=== PATIENT | male | born 1995 | race Caucasian/White ===

== ENCOUNTER 2018-08-18 01:32 | Inpatient (IN) ==
--- NOTE | 2018-08-18 02:10 | ED ---
HPI General Chief Complaint: Chest Pain Stated Complaint: Short of Breath Time Seen by Provider: 08/18/18 02:07 Source: patient Mode of arrival: ambulatory Limitations: no limitations History of Present Illness HPI narrative: 23-year-old male with history of renal failure on hemodialysis times 3 years has moved here from [place] traveling by car yesterday to the area. Patient typically has hemodialysis on Tuesdays and but because of the holiday had dialysis on Wednesday and is scheduled to have dialysis here locally at 11 AM on . Patient in the past 5 hours has developed chest pain and shortness of breath. Patient also complains of epigastric pain. Patient had nausea and dizziness. Patient was scheduled to have his evening dose of hydralazine and verapamil at 1:45 AM which is when he reportedly takes the medication but because he was on his way to the hospital did not take his morning medication. Patient does not report any pleuritic chest pain. Patient reportedly rates his pain 8/10 in intensity and radiates into his back. Patient also has history of hypertension. Patient takes amlodipine verapamil irbesartan and hydralazine. MD complaint: Reports chest pain Related Data Home Medications Medication Instructions Recorded Confirmed Auryxia 210 mg PO TID PRN 08/18/18 08/18/18 amlodipine 10 mg PO DAILY 08/18/18 08/18/18 hydralazine 100 mg PO BID 08/18/18 08/18/18 irbesartan 300 mg PO DAILY 08/18/18 08/18/18 verapamil 240 mg PO QAM 08/18/18 08/18/18 Allergies Allergy/AdvReac Type Severity Reaction Status Date / Time Beta-Blockers Allergy Dizziness Verified 08/18/18 01:55 (Beta-Adrenergic Bloc codeine Allergy Dizziness Verified 08/18/18 01:55 gluten Allergy Anaphylaxis Verified 08/18/18 01:54 latex Allergy Rash Verified 08/18/18 01:54 minoxidil Allergy Dizziness Verified 08/18/18 01:56 [facility] Medical History Medical History Stage 5 chronic kidney disease (Acute) Surgical history unknown (Acute) Social History Social History Substance History: No History of Abuse Smoking Status: Never smoker How Often Do You Have a Drink Containing Alcohol: Never Recent Travel in [facility] within the Last 8 Weeks: No Recent Out of Country Travel within the Last 8 Weeks: No Immunization History Tetanus Immunization: <5 Years Course Initial Documented Vital Signs Temperature 98.5 F 08/18/18 01:49 Pulse Rate 111 H 08/18/18 01:49 Respiratory Rate 18 08/18/18 01:49 Blood Pressure 175/115 H 08/18/18 01:49 Last Documented Vital Signs Temperature 98.5 F 08/18/18 01:49 Pulse Rate 110 H 08/18/18 05:08 Respiratory Rate 18 08/18/18 05:08 Blood Pressure 166/96 H 08/18/18 05:08 Pulse Oximetry 100 08/18/18 05:08 Medical Decision Making MDM Narrative Medical decision making narrative: At 2:30 AM patient refusing sublingual nitroglycerin and nitroglycerin paste and Lasix states only morphine provides him any pain relief. Patient reports he was hospitalized in [place] 1 month ago and had a similar presentation and he spoke to his mother on the phone who told him only morphine provides him pain relief. Patient subsequently has been noted to have decreased O2 saturation on 4 L/min nasal cannula from previously 92% sats down to 87% stat was placed on nonrebreather mask ABG was ordered and patient had chest x-ray which shows pulmonary edema with marked cardiomegaly and weight-based Lasix was ordered along with pending BMP for BUN and creatinine and potassium results patient will need to have dialysis. Patient states he makes minimal urine. EKG shows sinus tachycardia rate of 117 with septal Q wave and lateral ST depression. Chest x-ray consistent with pulmonary edema heart failure; potassium elevated at 6.4. Creatinine 46 and 13 his case discussed with on-call sap consultant Dr. Delgado who will arrange for hemodialysis is to be performed at [facility] Patient discussed with Dr. Burroughs will admit to stepdown for hemodialysis and management of fluid overload/hyperkalemia Medical Screen Exam Complete: Yes Emergency Medical Condition: Yes Lab Data Result diagrams: 08/18/18 02:05 08/18/18 02:05 Lab Results 08/18/18 08/18/18 08/18/18 Range/Units 02:05 02:05 02:05 CBC w Diff Auto diff final WBC 7.3 (4.0-11.0) th/mm3 RBC 3.61 L (4.50-5.90) mil/mm3 Hgb 11.8 L (13.0-17.0) gm/dL Hct 36.0 L (39.0-51.0) % MCV 99.7 (80.0-100.0) fL MCH 32.8 (27.0-34.0) pg MCHC 32.8 (32.0-36.0) % RDW 16.2 (11.6-17.2) % Plt Count 288 (150-450) th/mm3 MPV 7.9 (7.0-11.0) fL Neut % (Auto) 74.1 H (16.0-70.0) % Lymph % (Auto) 16.9 (9.0-44.0) % Dawes % (Auto) 4.9 (0.0-8.0) % Eos % (Auto) 3.3 (0.0-4.0) % Baso % (Auto) 0.8 (0.0-2.0) % Neut # (Auto) 5.4 (1.8-7.7) th/mm3 Lymph # (Auto) 1.2 (1.0-4.8) th/mm3 Dawes # (Auto) 0.4 (0.0-0.9) th/mm3 Eos # (Auto) 0.2 (0.0-0.4) th/mm3 Baso # (Auto) 0.1 (0.0-0.2) th/mm3 WBC Differential . Differential Comment . Puncture Site Patient Temperature O2 Saturation (90-100) % ABG pH (7.380-7.420) ABG pCO2 (38-42) mmHg ABG pO2 (61-120) mmHg ABG HCO3 (22-26) mmol/L ABG O2 Content (12.0-20.0) Vol % ABG Base Excess (-2-2) mmol/L ABG Methemoglobin (0-2) % Cricket Test Hemoglobin (12.0-16.0) G/DL Carboxyhemoglobin (0-4) % O2 Delivery Device Liter Flow L/M Inspired O2 % Critical Value Sodium 137 (136-145) meq/L Potassium 6.4 H (3.5-5.1) meq/L Chloride 99 (98-107) meq/L Carbon Dioxide 25.3 (21.0-32.0) meq/L Anion Gap 13 (5-15) meq/L BUN 46 H (7-18) mg/dL Creatinine 13.00 H* (0.60-1.30) mg/dL Estimated GFR 5 L (>89) mL/min Random Glucose 106 (74-106) mg/dL Calcium 8.5 (8.5-10.1) mg/dL Magnesium 2.7 H (1.5-2.5) mg/dL Total Bilirubin 0.5 (0.2-1.0) mg/dL AST 11 L (15-37) U/L ALT 24 (12-78) U/L Alkaline Phosphatase 152 H (45-117) U/L Troponin I 0.12 H (0.02-0.05) ng/mL B-Natriuretic Peptide (0-100) pg/mL Total Protein 7.6 (6.4-8.2) g/dL Albumin 3.7 (3.4-5.0) g/dL 08/18/18 08/18/18 Range/Units 02:05 02:30 CBC w Diff WBC (4.0-11.0) th/mm3 RBC (4.50-5.90) mil/mm3 Hgb (13.0-17.0) gm/dL Hct (39.0-51.0) % MCV (80.0-100.0) fL MCH (27.0-34.0) pg MCHC (32.0-36.0) % RDW (11.6-17.2) % Plt Count (150-450) th/mm3 MPV (7.0-11.0) fL Neut % (Auto) (16.0-70.0) % Lymph % (Auto) (9.0-44.0) % Dawes % (Auto) (0.0-8.0) % Eos % (Auto) (0.0-4.0) % Baso % (Auto) (0.0-2.0) % Neut # (Auto) (1.8-7.7) th/mm3 Lymph # (Auto) (1.0-4.8) th/mm3 Dawes # (Auto) (0.0-0.9) th/mm3 Eos # (Auto) (0.0-0.4) th/mm3 Baso # (Auto) (0.0-0.2) th/mm3 WBC Differential Differential Comment Puncture Site Left radial Patient Temperature 98.6 O2 Saturation 94 (90-100) % ABG pH 7.46 H (7.380-7.420) ABG pCO2 38 (38-42) mmHg ABG pO2 79 (61-120) mmHg ABG HCO3 27 H (22-26) mmol/L ABG O2 Content 15.3 (12.0-20.0) Vol % ABG Base Excess 3.1 H (-2-2) mmol/L ABG Methemoglobin 1.6 (0-2) % Cricket Test Present Hemoglobin 11.5 L (12.0-16.0) G/DL Carboxyhemoglobin 1.8 (0-4) % O2 Delivery Device Non-rebreathing mask Liter Flow 15.00 L/M Inspired O2 100 % Critical Value No Sodium (136-145) meq/L Potassium (3.5-5.1) meq/L Chloride (98-107) meq/L Carbon Dioxide (21.0-32.0) meq/L Anion Gap (5-15) meq/L BUN (7-18) mg/dL Creatinine (0.60-1.30) mg/dL Estimated GFR (>89) mL/min Random Glucose (74-106) mg/dL Calcium (8.5-10.1) mg/dL Magnesium (1.5-2.5) mg/dL Total Bilirubin (0.2-1.0) mg/dL AST (15-37) U/L ALT (12-78) U/L Alkaline Phosphatase (45-117) U/L Troponin I (0.02-0.05) ng/mL B-Natriuretic Peptide 1342 H (0-100) pg/mL Total Protein (6.4-8.2) g/dL Albumin (3.4-5.0) g/dL Imaging Data Radiologist's impression: Chest X-Ray 08/18/18 02:03 CONCLUSION: Cardiomegaly with diffuse consolidation likely related to diffuse processes such as pulmonary edema or diffuse infection. Discharge Plan Discharge Disposition Patient Disposition: ED Admit(ED Internal Use Only) Discharge Condition Condition: Fair Discharge Order Discharge Orders: ED Use Only Admit Order (Routine); Ordered 08/18/18 Ordered By: Fay Mccartney Discharge Details Diagnosis: Pulmonary edema, Hyperkalemia, Renal failure, Hemodialysis patient Physicians Team ED Provider: Fay Mccartney Primary Care Provider: Primary Care Chari Jefferson Attending Provider: Arnulfo Adames Other Providers: Priya Delgado Discharge Interventions Interventions: ED Discharge Assessment Last Done: 08/18/18 05:09 Status ED Status: Admitted Patient
[2018-08-18] MEDS: Sod Chloride 0.9% Inj 1,000 ML IV.CONT SCH ×3 (02:19→16:07)
[2018-08-18 02:22] LABS: Baso # (Auto) 0.1 th/mm3 (0.0-0.2); Baso % (Auto) 0.8 % (0.0-2.0); Eos # (Auto) 0.2 th/mm3 (0.0-0.4); Eos % (Auto) 3.3 % (0.0-4.0); Hemoglobin 11.8 gm/dL (13.0-17.0); Lymph # (Auto) 1.2 th/mm3 (1.0-4.8); Lymph % (Auto) 16.9 % (9.0-44.0); Mean Corpuscular HGB Conc 32.8 % (32.0-36.0); Mean Corpuscular Hemoglobin 32.8 pg (27.0-34.0); Mean Corpuscular Volume 99.7 fL (80.0-100.0); Mean Platelet Volume 7.9 fL (7.0-11.0); Mono # (Auto) 0.4 th/mm3 (0.0-0.9); Mono % (Auto) 4.9 % (0.0-8.0); Neut # (Auto) 5.4 th/mm3 (1.8-7.7); Neut % (Auto) 74.1 % (16.0-70.0); Platelet Count 288 th/mm3 (150-450); Red Blood Count 3.61 mil/mm3 (4.50-5.90); Red Cell Distribution Width 16.2 % (11.6-17.2); White Blood Count 7.3 th/mm3 (4.0-11.0)
--- NOTE | 2018-08-18 02:28 | XR ---
EXAM DATE: 08/18/2018 2:18 AM EST AGE/SEX: 23 years / Male INDICATIONS: Chest pain, shortness of breath. CLINICAL DATA: This is the patient's initial encounter. Patient reports that signs and symptoms have been present for 1 day and indicates a pain score of 10/10. MEDICAL/SURGICAL HISTORY: . Renal failure. . Dialysis catheter. COMPARISON: No prior exams available for comparison. FINDINGS: There is a left internal jugular double-lumen catheter in place. The tips overlie the right atrium. T he heart size is enlarged. Lungs are associated diffuse mixed interstitial and alveolar density. The costophrenic angles are grossly clear. CONCLUSION: Cardiomegaly with diffuse consolidation likely related to diffuse processes such as pulmonary edema o r diffuse infection. Electronically signed by: Timothy Robbins MD Board Certified Radiologist 08/18/2018 2:27 AM EST
[2018-08-18 02:42] LABS: ABG Base Excess 3.1 mmol/L (-2-2); ABG PCO2 38 mmHg (38-42); ABG PO2 79 mmHg (61-120)
[2018-08-18 02:43] LABS: Chloride 99 meq/L (98-107); Potassium 6.4 meq/L (3.5-5.1); Sodium 137 meq/L (136-145)
[2018-08-18] MEDS ORDERED: Sodium Polystyrene Sulfonate/Sorbitol Liq 15 GM/60 ML UDC PO ONE (02:43)
[2018-08-18] MEDS ORDERED: Calcium Gluconate Inj 1 GM in Dextrose 5% in Water Inj 100 ML IV.SIG ONE ×2 (02:43)
[2018-08-18] MEDS ORDERED: Sodium Bicarbonate 8.4% Inj 50 MEQ/50 ML Syringe IV.PUSH ONE (02:43)
[2018-08-18 02:46] LABS: Albumin 3.7 g/dL (3.4-5.0); Anion Gap 13 meq/L (5-15); Calcium 8.5 mg/dL (8.5-10.1); Carbon Dioxide 25.3 meq/L (21.0-32.0); Glucose,Random 106 mg/dL (74-106)
[2018-08-18 02:47] LABS: Blood Urea Nitrogen 46 mg/dL (7-18)
[2018-08-18 02:49] LABS: Alanine Aminotransferase 24 U/L (12-78); Aspartate Aminotransferase 11 U/L (15-37)
[2018-08-18 02:50] LABS: Glomerular Filtration Rate 5 mL/min (>89)
[2018-08-18 02:51] LABS: Total Protein 7.6 g/dL (6.4-8.2)
[2018-08-18 02:52] LABS: Alkaline Phosphatase 152 U/L (45-117)
[2018-08-18 02:54] LABS: Troponin I 0.12 ng/mL (0.02-0.05)
[2018-08-18] MEDS ORDERED: Acetaminophen 325 MG Tablet PO PRN (04:28)
[2018-08-18] MEDS: Heparin 10,000 UNITS/10 ML Vial (for IV use) OTHER PRN ×2 (08:26→20:18)
[2018-08-18] MEDS: Heparin - SQ 10,000 UNITS/ML Vial SQ SCH ×5 (10:08→21:09)
[2018-08-18] MEDS ORDERED: FERRIC CITRATE PO (15:00)
--- NOTE | 2018-08-18 15:20 | ECG ---
Date Performed: 08/18/2018 Time Performed: 02:29:05 PTAGE: 23 years EKG: SINUS TACHYCARDIA POSSIBLE LEFT ATRIAL ENLARGEMENT BORDERLINE RIGHT AXIS DEVIATION ST DEVIA TION AND MODERATE T-WAVE ABNORMALITY, CONSIDER LATERAL ISCHEMIA LEFT VENTRICULAR HYPERTROPHY ABNORMAL ECG NO PREVIOUS TRACING DOCTOR: Kathy De La Vega Interpretating Date/Time 08/18/2018 15:18:43
[2018-08-18] MEDS ORDERED: hydrALAZINE 50 MG Tablet PO ONE (16:00)
--- NOTE | 2018-08-18 16:07 | XR ---
EXAM DATE: 08/18/2018 3:50 PM EST AGE/SEX: 23 years / Male INDICATIONS: Respiratory failure. CLINICAL DATA: This is the patient's subsequent encounter. Patient reports that signs and symptoms h ave been present for 1 day and indicates a pain score of 0/10. MEDICAL/SURGICAL HISTORY: . Renal failure. . Dialysis catheter. COMPARISON: [facility], CHEST 1V SINGLE AP, 08/18/2018. . FINDINGS: There continues to be diffuse interstitial infiltrates throughout both lung booker with some increase d consolidation in both lower lungs. Heart size is enlarged but stable. There is no evidence of pneum othorax. There is some mild blunting of the costophrenic angles suggestive of small effusions. These findings are about the same or mildly improved compared to the prior study. CONCLUSION: There continues to be interstitial infiltrates bilaterally suggestive of pulmonary edema versus pneum onia. This is about the same or slightly improved compared to the prior exam. Electronically signed by: Husam Coley MD Board Certified Radiologist 08/18/2018 4:06 PM EST
[2018-08-18 16:31] LABS: ABG Base Excess 6.9 mmol/L (-2-2); ABG PO2 97 mmHg (61-120)
[2018-08-18 16:32] LABS: ABG PCO2 41 mmHg (38-42)
[2018-08-18 16:44] LABS: Potassium 5.8 meq/L (3.5-5.1)
[2018-08-18 16:47] LABS: Calcium 8.2 mg/dL (8.5-10.1); Carbon Dioxide 32.3 meq/L (21.0-32.0)
--- NOTE | 2018-08-18 17:40 | MB ---
cc: Priya Delgado MD DATE: 08/18/2018 REASON FOR CONSULTATION: End-stage renal disease, on hemodialysis for management. HISTORY OF PRESENT ILLNESS: This is a 23-year-old male with a past medical history of hypertension, end-stage renal disease on hemodialysis for almost 2 years, history of chronic anemia, came to the hospital because of retrosternal chest pain and shortness of breath. I was called to see the patient around 2:45 in the morning because of high potassium. When the result came in, it was 6.4. The patient has been on hemodialysis has Wednesday, and Wednesday, but because of holiday this week his dialysis was done on Wednesday. The patient is traveling and he is visiting [place] for 1 week and he was scheduled to get dialysis as outpatient today, but he came to the hospital in the night because he started having more shortness of breath and also has retrosternal chest pain. The patient denied any nausea or vomiting. His pain is much better and his breathing improved after he has the urgent dialysis, which was done early in the morning. Chest pain was mainly retrosternal and was not radiating. There is no history of fever. No cough. PAST MEDICAL HISTORY: End-stage renal disease, on hemodialysis, hypertension, history of anemia. PAST SURGICAL HISTORY: History of Permcath placement. He has no AV fistula done because he has been waiting to get a kidney transplant and he had some donor but it did not work out. SOCIAL HISTORY: The patient has no history of smoking or alcoholism. FAMILY HISTORY: Noncontributory. REVIEW OF SYSTEMS: There is no history of fever. No headache, dizziness or blurring of vision. The patient has just gradual worsening of shortness of breath associated with a cough which is mainly dry and started having retrosternal chest pain yesterday evening, which was getting worse. There is no nausea, vomiting. No abdominal pain. No history of diarrhea, not taking any nonsteroidal anti-inflammatory drugs. ALLERGIES: HE IS ALLERGIC TO BETA PRATIBHA, CODEINE, GLUTEN, LATEX, MINOXIDIL. MEDICATIONS: Currently he is on the following medications: 1. Norvasc 10 mg once a day. 2. Heparin 5000 units q.8 hours. 3. Hydralazine 100 mg b.i.d. 4. Cozaar 100 mg daily. 5. Zofran as needed. 6. Verapamil 240 mg daily. PHYSICAL EXAMINATION: GENERAL: He is awake, alert. He is not in acute distress. VITAL SIGNS: His blood pressure recorded is 128/83, his blood pressure was high when he came in. Temperature is 98.6, T-max of 99.8, oxygen saturation is 96% on 4 liters nasal cannula. HEENT: Pupils are mid constricted. Nonicteric sclerae. Conjunctivae pale. NECK: Supple. JVD is slightly elevated. LUNGS: The patient has bilateral decreased air entry with basal rales and scattered wheezing. HEART: S1, S2. Regular rate and rhythm. ABDOMEN: Soft and lax. There is no tenderness. Bowel sounds positive. EXTREMITIES: There is mild pedal edema. LABORATORY DATA: WBC count 7.3, hemoglobin 11.8, platelet count of 288, neutrophils 74.1%. Arterial blood gas showing pH of 7.46, pCO2 of 38 and pO2 of 79. This was done on 15 liters oxygen. Sodium 137, potassium 6.4, chloride 99, bicarbonate 25.3, BUN 46, creatinine 13, magnesium is 2.7. Alkaline phosphatase is 152. BNP is 1342, total protein 7.6, albumin is 3.7. IMAGING STUDIES: The patient had a chest x-ray done, which shows increased interstitial marking with pulmonary edema. ASSESSMENT AND PLAN: 1. End-stage renal disease on hemodialysis, came with fluid overload status. 2. Hypertension, came with uncontrolled. 3. Hyperkalemia. 4. Anemia. The patient has a hemodialysis done early this morning and this is his regular day on . He has improvement in his breathing, 3.2 liters was removed. Blood pressure is much better. He does not have any chest pain, ____ 0.12, blood pressure is much better. He has low-grade fever on admission, but has been improved now. If he remains stable, possibly can be discharged tomorrow and continue his outpatient dialysis on Wednesday and he is supposed to leave this area on Wednesday after dialysis. Thank you for consultation. I will follow the patient while he is in the hospital. MD ERIKA Nelson/ammy/elida , 04:23 PM , 04:37 PM
--- NOTE | 2018-08-18 17:59 | P.HPIM ---
History of Present Illness Primary Care Physician: No Primary Care Physician History of Present Illness: 23-year-old male with a history of end-stage renal disease on hemodialysis who arrived from [place] 1 day ago, who presents with a 1 day history of dull constant pressure-like chest pain, shortness of breath beginning last night. He says he thinks it was due to him lying down flat. He says he is not been admitted to the hospital with similar issues in the past, fluid on his lungs, and this was found to be fluid overload. however, he denies any history of heart disease. Breath has improved after dialysis, however is continuing. Dull chest pain radiating to back is slightly better. Patient denies any illicit drug use. Denies any recent medication changes. Inpatient Certification: I certify that the inpatient services were ordered in accordance with Medicare regulations governing the order. This includes certification that hospital inpatient services are reasonable and necessary and in the case of services not specified as inpatient-only under 42 CFR 419.22(n), that they are appropriately provided as inpatient services in accordance to with the 2-midnight benchmark under 43 CFR 412.3(e) Estimated Total Length of Stay (Days): 2 Plans for Post Hospital Care: Home Review of Systems All other systems reviewed negative except as stated in HPI PMFSH - History History Provided By: Patient - Medical History Medical History: Medical History (Last Updated 08/18/18 @ 17:46 by Arnulfo Adames MD) Fitting and adjustment of vascular catheter Stage 5 chronic kidney disease Surgical history unknown - Family History Family History: Family History (Last Updated 08/18/18 @ 17:46 by Arnulfo Adames MD) Mother Diabetes mellitus - Tobacco History Second Hand Smoke Exposure: No Smoking Status: Never smoker - Alcohol History How Often Do You Have a Drink Containing Alcohol: Never - Substance Use History Substance History: No History of Abuse - Travel History Recent Travel in the USA Within the Last 8 Weeks: No Recent Travel Out of the Country Within the Last 8 Weeks: No - Immunization History Tetanus Immunization: Unsure Hx Influenza Vaccine This Season: No Medications and Allergies Active Medications: Active Medications Acetaminophen (Tylenol) 650 mg PO Q4H PRN PRN Reason: Temp > 100.4 Amlodipine Besylate (Norvasc) 10 mg PO DAILY [facility] Gentamicin Sulfate (Gentamicin Inj) 20 mg OTHER UNSCH PRN PRN Reason: WITH DIALYSIS Last Admin: 08/18/18 08:27 Dose: 20 mg Heparin Sodium (Porcine) (Heparin Inj) 5,000 units SQ Q8H [facility] Last Admin: 08/18/18 16:04 Dose: Not Given Heparin Sodium (Porcine) (Heparin Inj) 1,000 units OTHER UNSCH PRN PRN Reason: WITH DIALYSIS Last Admin: 08/18/18 08:26 Dose: 1,000 units Hydralazine HCl (Apresoline) 100 mg PO BID [facility] Losartan Potassium (Cozaar) 100 mg PO DAILY [facility] Ondansetron HCl (Zofran Inj) 4 mg IV.PUSH Q6H PRN PRN Reason: NAUSEA OR VOMITING Auryxia (Ferric Citrate) 210 Mg 2 Tablets (420 Mg) Po Tid Prn Consumption Of Meals High In 0 each PO TID PRN PRN Reason: SEE LABEL COMMENTS Sodium Chloride (Ns Flush) 2 ml IV.FLUSH UNSCH PRN PRN Reason: FLUSH AFTER USING IV ACCESS Sodium Chloride (Ns Flush) 2 ml IV.FLUSH BID [facility] Last Admin: 08/18/18 10:08 Dose: 2 ml Sodium Chloride (Ns Flush) 2 ml IV.FLUSH PRN PRN PRN Reason: FLUSH AFTER USING IV ACCESS Verapamil HCl (Isoptin Sr) 240 mg PO BID [facility] Allergies Allergy/AdvReac Type Severity Reaction Status Date / Time Beta-Blockers Allergy Dizziness Verified 08/18/18 01:55 (Beta-Adrenergic Bloc codeine Allergy Dizziness Verified 08/18/18 01:55 gluten Allergy Anaphylaxis Verified 08/18/18 01:54 latex Allergy Rash Verified 08/18/18 01:54 minoxidil Allergy Dizziness Verified 08/18/18 01:56 Home Medications Medication Instructions Recorded Confirmed Type Auryxia 210 mg PO TID PRN 08/18/18 08/18/18 History amlodipine 10 mg PO DAILY 08/18/18 08/18/18 History hydralazine 100 mg PO BID 08/18/18 08/18/18 History irbesartan 300 mg PO DAILY 08/18/18 08/18/18 History verapamil 240 mg PO QAM 08/18/18 08/18/18 History Exam Vital signs: Vital Signs 08/18/18 01:49 08/18/18 02:13 08/18/18 02:14 Temperature 98.5 F Pulse Rate 111 H 106 H Respiratory Rate 18 18 Blood Pressure 175/115 H 148/94 H Pulse Oximetry 92 L 92 L 08/18/18 02:43 08/18/18 03:10 08/18/18 03:41 Temperature Pulse Rate 112 H Respiratory Rate 18 Blood Pressure 171/109 H Pulse Oximetry 98 94 L 100 08/18/18 04:59 08/18/18 05:08 08/18/18 05:45 Temperature 99.8 F H Pulse Rate 126 H 110 H 114 H Respiratory Rate 41 H 18 28 H Blood Pressure 178/118 H 166/96 H 160/107 H Pulse Oximetry 97 100 97 08/18/18 06:00 08/18/18 06:47 08/18/18 08:00 Temperature 98.6 F Pulse Rate 120 H 111 H Respiratory Rate 25 H Blood Pressure 152/80 H Pulse Oximetry 98 98 08/18/18 09:15 08/18/18 09:36 08/18/18 09:45 Temperature Pulse Rate 104 H Respiratory Rate 26 H Blood Pressure 150/91 H Pulse Oximetry 99 99 96 08/18/18 09:51 08/18/18 12:00 08/18/18 13:00 Temperature Pulse Rate 106 H Respiratory Rate 22 Blood Pressure 127/76 Pulse Oximetry 94 L 94 L 91 L 08/18/18 13:30 08/18/18 13:59 08/18/18 14:56 Temperature Pulse Rate 104 H Respiratory Rate 23 Blood Pressure 131/74 Pulse Oximetry 93 L 89 L 95 08/18/18 15:15 Temperature Pulse Rate 108 H Respiratory Rate 40 H Blood Pressure 128/83 Pulse Oximetry 96 Intake & Output 08/17/18 08/18/18 08/18/18 18:59 06:59 18:59 Intake Total 110 / 110 Output Total 0 / 0 3200 / 3200 Balance 110 / 110 -3200 / -3200 Weight 66.2 kg Intake: IV 110 / 110 Calcium Gluconate Inj 1 GM In 110 / 110 D5W Inj 100 ML @ 110 mls/hr IV. SIG ONCE ONE Rx#:[id number] Output: Urine 0 / 0 Hemodialysis Amount 3200 / 3200 Other: Date of Last Bowel Movement 08/17/18 08/17/18 Weight On Admission 66.2 kg Narrative: GENERAL: Patient sitting in bed. Appears comfortable. Alert and oriented x4. On 12 L partial nonrebreather. SKIN: Warm and dry. HEAD: Atraumatic. Normocephalic. EYES: Pupils equal and round. No scleral icterus. No injection or drainage. ENT: No nasal bleeding or discharge. Mucous membranes pink and moist. NECK: Trachea midline. No JVD. CARDIOVASCULAR: Regular rate and rhythm. RESPIRATORY: No accessory muscle use. Crackles bilaterally. Breath sounds equal bilaterally. GASTROINTESTINAL: Abdomen soft, non-tender, nondistended. Hepatic and splenic margins not palpable. MUSCULOSKELETAL: Extremities without clubbing, cyanosis, or edema. No obvious deformities. NEUROLOGICAL: Awake and alert. No obvious cranial nerve deficits. Motor grossly within normal limits. Five out of 5 muscle strength in the arms and legs. Normal speech. PSYCHIATRIC: Appropriate mood and affect; insight and judgment normal. Results - Labs CBC & Chem 7: 08/18/18 02:05 08/18/18 16:20 Labs: Short CBC 08/18/18 Range/Units 02:05 WBC 7.3 (4.0-11.0) th/mm3 Hgb 11.8 L (13.0-17.0) gm/dL Hct 36.0 L (39.0-51.0) % Plt Count 288 (150-450) th/mm3 BMP 08/18/18 08/18/18 02:05 16:20 Sodium 137 136 Potassium 6.4 H 5.8 H Chloride 99 97 L Carbon Dioxide 25.3 32.3 H BUN 46 H 26 H Creatinine 13.00 H* 8.90 H Calcium 8.5 8.2 L Cardiac Enzymes 08/18/18 08/18/18 Range/Units 02:05 16:20 Troponin I 0.12 H 0.07 H (0.02-0.05) ng/mL Liver Function 08/18/18 Range/Units 02:05 Total Bilirubin 0.5 (0.2-1.0) mg/dL AST 11 L (15-37) U/L ALT 24 (12-78) U/L Alkaline Phosphatase 152 H (45-117) U/L Albumin 3.7 (3.4-5.0) g/dL - Imaging Impressions Chest X-Ray 08/18/18 02:03 CONCLUSION: Cardiomegaly with diffuse consolidation likely related to diffuse processes such as pulmonary edema or diffuse infection. Chest X-Ray 01/03/19 15:17 CONCLUSION: There continues to be interstitial infiltrates bilaterally suggestive of pulmonary edema versus pneumonia. This is about the same or slightly improved compared to the prior exam. Caprini VTE Risk Assessment Caprini VTE Risk Assessment: Moderate/High Risk (score >= 2) Caprini Risk Assessment Model: Point Value = 1 Point Value = 2 Point Value = 3 Point Value = 5 Age 41-60 Minor surgery BMI > 25 kg/m2 Swollen legs Varicose veins or History of unexplained or recurrent spontaneous Oral contraceptives or hormone replacement Sepsis (< 1 month) Serious lung disease, including pneumonia (< 1 month) Abnormal pulmonary function Acute myocardial infarction Congestive heart failure (< 1 month) History of inflammatory bowel disease Medical patient at bed rest Age 61-74 Arthroscopic surgery Major open surgery (> 45 min) Laparoscopic surgery (> 45 min) Malignancy Confined to bed (> 72 hours) Immobilizing plaster cast Central venous access Age >= 75 History of VTE Family history of VTE Factor V Leiden Prothrombin [id number] Lupus anticoagulant Anticardiolipin antibodies Elevated serum homocysteine Heparin-induced thrombocytopenia Other congenital or acquired thrombophilia Stroke (< 1 month) Elective arthroplasty Hip, pelvis, or leg fracture Acute spinal cord injury (< 1 month) Prophylaxis Regimen: Total Risk Factor Score Risk Level Prophylaxis Regimen 0-1 Low Early ambulation 2 Moderate Order ONE of the following: *Sequential Compression Device (SCD) *Heparin 5000 units SQ BID 3-4 Higher Order ONE of the following medications: *Heparin 5000 units SQ TID *Enoxaparin/Lovenox 40 mg SQ daily (WT < 150 kg, CrCl > 30 mL/min) *Enoxaparin/Lovenox 30 mg SQ daily (WT < 150 kg, CrCl > 10-29 mL/min) *Enoxaparin/Lovenox 30 mg SQ BID (WT < 150 kg, CrCl > 30 mL/min) AND/OR *Sequential Compression Device (SCD) 5 or more Highest Order ONE of the following medications: *Heparin 5000 units SQ TID (Preferred with Epidurals) *Enoxaparin/Lovenox 40 mg SQ daily (WT < 150 kg, CrCl > 30 mL/min) *Enoxaparin/Lovenox 30 mg SQ daily (WT < 150 kg, CrCl > 10-29 mL/min) *Enoxaparin/Lovenox 30 mg SQ BID (WT < 150 kg, CrCl > 30 mL/min) AND *Sequential Compression Device (SCD) Assessment and Plan - Plan //Acute CHF exacerbation //Atypical chest pain //End-stage renal disease on hemodialysis Wednesday and Wednesday. Nephrology consulted. -BNP elevated at 1300 on admission, 1600 after dialysis this morning. -Chest x-ray with bilateral infiltrates. -EKG with hypertrophy, ST depression -ABG with pH 7.48, bicarb 31, metabolic alkalosis -Check echocardiogram. Consult cardiology for cardiomyopathy. Nephrology is consulted for fluid overload. Discussed with nephrology who will dialyze the patient again. = Troponin elevated to 0.14 on admission, subsequently 0.07. Likely elevated due to ESRD, on likely elevated due to OH. 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 Discharge Planning: Pending improvement. H&P: Quality - VTE Deep Vein Thrombosis/Pulmonary Embolism Present on Admission: No
[2018-08-18] MEDS ORDERED: Morphine Inj 4 MG/ML Vial IV.PUSH ONE (18:00)
--- NOTE | 2018-08-18 18:40 | CT ---
EXAM DATE: 08/18/2018 6:32 PM EST AGE/SEX: 23 years / Male INDICATIONS: Chest pain. Short of breath. CLINICAL DATA: This is the patient's initial encounter. Patient reports that signs and symptoms have been present for 1 day and indicates a pain score of 5/10. MEDICAL/SURGICAL HISTORY: Renal failure, chronic. None. RADIATION DOSE: 8.16 CTDI (mGy) COMPARISON: No prior exams available for comparison. TECHNIQUE: Volumetric scanning was performed using a multi-row detector CT scanner during bolus infu mitch of 75 ml Omnipaque 350 (iohexol) nonionic water-soluble contrast as a single exam dose. The jose g a was post processed with a variety of visualization algorithms including full volume maximum intensi ty projection and sliding thin slab reformation. Using automated exposure control and adjustment of t he mA and/or kV according to patient size, radiation dose was kept as low as reasonably achievable to obtain optimal diagnostic quality images. DICOM format image data is available electronically for r eview and comparison. FINDINGS: Pulmonary Arteries: No filling defects are seen in the pulmonary arteries out to the subsegmental ve ssels. The left and right pulmonary arteries are normal in diameter. Lung: Consolidation involving the lower lobes bilaterally. Some air bronchogram formation is noted. No cavitation observed. Scattered areas of groundglass opacity throughout the upper lobes bilaterally .. Effusion: Small posterior layering pleural effusions bilaterally with the right larger than the left .. Mediastinum: Moderate cardiomegaly with tiny pericardial effusion. Mediastinal and hilar adenopathy bilaterally with multiple small lymph nodes scattered throughout. The largest lymph node is prevascul ar in nature and measures 13 x 13 mm. Residual thymic tissue noted.. Other: The axilla is unremarkable. A dialysis catheter overlies the left chest. CONCLUSION: 1. No pulmonary emboli. 2. Cardiomegaly with small pericardial effusion. 3. Bilateral pulmonary consolidations with bilateral pleural effusions and adenopathy suggesting an infectious etiology. Electronically signed by: Bogdan Lowery MD Board Certified Radiologist 08/18/2018 6:39 PM EST
[2018-08-18] MEDS: Verapamil SR 240 MG Tablet PO SCH (21:07)
[2018-08-18] MEDS: hydrALAZINE 50 MG Tablet PO SCH (21:08)
[2018-08-19] MEDS: Heparin - SQ 10,000 UNITS/ML Vial SQ SCH ×3 (06:51→21:28)
--- NOTE | 2018-08-19 07:51 | P.CONCA ---
History of Present Illness Primary Care Provider: No Primary Care Physician History of Present Illness: 23-year-old male with ESRD on HD, HTN, secondary hyperparathyroidism who presented for shortness of breath. The patient states that for the past few days he has been having more shortness of breath as well as constant left lower chest discomfort that is worse whenever he takes a deep breath. His breathing is worse when lying flat. He recently drove down to [place] [employer] to see about moving down here, and had a lot of fast food on his drive down. He denies any recent illness, fever, chills, cough. He denies any prior history of heart disease. Upon presentation he had a CTA which showed no PE, but bilateral pulmonary consolidations and effusions. He reports he did not miss any hemodialysis sessions, but has been noncompliant with salt intake. He received hemodialysis here yesterday on his regularly scheduled day with 3.2 L of fluid removed, however chest x-ray afterwards continued to show luminary edema. He reports he does not make much urine at baseline. Currently still orthopneic and on Venturi mask. No lower extremity swelling. Troponin 0.12 on admission and decreased to 0.07 after dialysis. EKG with NSR, possible LVH changes with associated lateral T wave abnormalities. Potassium 6.4 at admission, down to 5.8 after dialysis. Review of Systems All other systems reviewed negative except as stated in HPI PMFSH - History History Provided By: Patient, Medical Record - Medical History Medical History: Medical History (Last Updated 08/19/18 @ 07:44 by PRABHU Block) Fitting and adjustment of vascular catheter HTN (hypertension) Stage 5 chronic kidney disease Surgical history unknown - Family History Family History: Family History (Last Updated 08/18/18 @ 17:46 by Arnulfo Adames MD) Mother Diabetes mellitus - Tobacco History Second Hand Smoke Exposure: No Smoking Status: Never smoker - Alcohol History How Often Do You Have a Drink Containing Alcohol: Never - Substance Use History Substance History: No History of Abuse - Travel History Recent Travel in the [place] Within the Last 8 Weeks: No Recent Travel Out of the Country Within the Last 8 Weeks: No - Immunization History Tetanus Immunization: Unsure Hx Influenza Vaccine This Season: No Medications and Allergies Active Medications: Active Medications Acetaminophen (Tylenol) 650 mg PO Q4H PRN PRN Reason: Temp > 100.4 Amlodipine Besylate (Norvasc) 10 mg PO DAILY [facility] Gentamicin Sulfate (Gentamicin Inj) 20 mg OTHER UNSCH PRN PRN Reason: WITH DIALYSIS Last Admin: 08/18/18 20:18 Dose: 20 mg Heparin Sodium (Porcine) (Heparin Inj) 5,000 units SQ Q8H [facility] Last Admin: 08/19/18 06:51 Dose: Not Given Heparin Sodium (Porcine) (Heparin Inj) 1,000 units OTHER UNSCH PRN PRN Reason: WITH DIALYSIS Last Admin: 08/18/18 20:18 Dose: 1,000 units Hydralazine HCl (Apresoline) 100 mg PO BID [facility] Last Admin: 08/18/18 21:08 Dose: 100 mg Losartan Potassium (Cozaar) 100 mg PO DAILY [facility] Ondansetron HCl (Zofran Inj) 4 mg IV.PUSH Q6H PRN PRN Reason: NAUSEA OR VOMITING Auryxia (Ferric Citrate) 210 Mg 2 Tablets (420 Mg) Po Tid Prn Consumption Of Meals High In 0 each PO TID PRN PRN Reason: SEE LABEL COMMENTS Sodium Chloride (Ns Flush) 2 ml IV.FLUSH UNSCH PRN PRN Reason: FLUSH AFTER USING IV ACCESS Sodium Chloride (Ns Flush) 2 ml IV.FLUSH BID [facility] Last Admin: 08/18/18 21:08 Dose: 2 ml Sodium Chloride (Ns Flush) 2 ml IV.FLUSH PRN PRN PRN Reason: FLUSH AFTER USING IV ACCESS Verapamil HCl (Isoptin Sr) 240 mg PO BID [facility] Last Admin: 08/18/18 21:07 Dose: 240 mg Allergies Allergy/AdvReac Type Severity Reaction Status Date / Time Beta-Blockers Allergy Dizziness Verified 08/18/18 01:55 (Beta-Adrenergic Bloc codeine Allergy Dizziness Verified 08/18/18 01:55 gluten Allergy Anaphylaxis Verified 08/18/18 01:54 latex Allergy Rash Verified 08/18/18 01:54 minoxidil Allergy Dizziness Verified 08/18/18 01:56 Home Medications Medication Instructions Recorded Confirmed Type Auryxia 210 mg PO TID PRN 08/18/18 08/18/18 History amlodipine 10 mg PO DAILY 08/18/18 08/18/18 History hydralazine 100 mg PO BID 08/18/18 08/18/18 History irbesartan 300 mg PO DAILY 08/18/18 08/18/18 History verapamil 240 mg PO QAM 08/18/18 08/18/18 History Exam Vital signs: Vital Signs 08/18/18 08:00 08/18/18 09:15 08/18/18 09:36 Temperature 98.6 F Pulse Rate 111 H 104 H Respiratory Rate 25 H 26 H Blood Pressure 152/80 H 150/91 H Pulse Oximetry 98 99 99 08/18/18 09:45 08/18/18 09:51 08/18/18 12:00 Temperature Pulse Rate 106 H Respiratory Rate 22 Blood Pressure 127/76 Pulse Oximetry 96 94 L 94 L 08/18/18 13:00 08/18/18 13:30 08/18/18 13:59 Temperature Pulse Rate 104 H Respiratory Rate 23 Blood Pressure 131/74 Pulse Oximetry 91 L 93 L 89 L 08/18/18 14:56 08/18/18 15:15 08/18/18 19:40 Temperature Pulse Rate 108 H Respiratory Rate 40 H 5 L Blood Pressure 128/83 Pulse Oximetry 95 96 08/18/18 20:00 08/18/18 21:10 08/18/18 23:57 Temperature 98.8 F 99.6 F Pulse Rate 96 H 100 H Respiratory Rate 22 31 H Blood Pressure 140/70 151/81 H Pulse Oximetry 100 98 95 08/19/18 04:00 Temperature 98.5 F Pulse Rate 95 H Respiratory Rate 33 H Blood Pressure 128/72 Pulse Oximetry Intake & Output 08/18/18 08/19/18 08/19/18 18:59 06:59 18:59 Intake Total 240 / 240 Output Total 3200 / 3200 2500 / 2500 Balance -3200 / -3200 -2260 / -2260 Weight 127 lb 13.89 oz Intake: Oral 240 / 240 Output: Urine 0 / 0 Hemodialysis Amount 3200 / 3200 2500 / 2500 Other: Date of Last Bowel Movement 08/17/18 Narrative: GENERAL: Well-developed well-nourished. In no acute distress. NECK: No carotid bruits. No JVD. CARDIOVASCULAR: Regular rate and rhythm. No murmur appreciated. RESPIRATORY: No accessory muscle use. Clear to auscultation. Breath sounds equal bilaterally. MUSCULOSKELETAL: No clubbing or cyanosis. No edema. NEUROLOGICAL: Awake and alert. Normal speech. Results 08/18/18 02:05 08/18/18 16:20 Cardiac Enzymes 08/18/18 08/18/18 08/18/18 Range/Units 02:05 02:05 16:20 AST 11 L (15-37) U/L Troponin I 0.12 H (0.02-0.05) ng/mL B-Natriuretic Peptide 1342 H 1641 H (0-100) pg/mL 08/18/18 Range/Units 16:20 AST (15-37) U/L Troponin I 0.07 H (0.02-0.05) ng/mL B-Natriuretic Peptide (0-100) pg/mL Coagulation 08/18/18 08/18/18 Range/Units 02:05 16:20 B-Natriuretic Peptide 1342 H 1641 H (0-100) pg/mL CBC 08/18/18 Range/Units 02:05 WBC 7.3 (4.0-11.0) th/mm3 RBC 3.61 L (4.50-5.90) mil/mm3 Hgb 11.8 L (13.0-17.0) gm/dL Hct 36.0 L (39.0-51.0) % Plt Count 288 (150-450) th/mm3 Neut # (Auto) 5.4 (1.8-7.7) th/mm3 Lymph # (Auto) 1.2 (1.0-4.8) th/mm3 [place] # (Auto) 0.4 (0.0-0.9) th/mm3 Eos # (Auto) 0.2 (0.0-0.4) th/mm3 Baso # (Auto) 0.1 (0.0-0.2) th/mm3 Comprehensive Metabolic Panel 08/18/18 08/18/18 Range/Units 02:05 16:20 Sodium 137 136 (136-145) meq/L Potassium 6.4 H 5.8 H (3.5-5.1) meq/L Chloride 99 97 L (98-107) meq/L Carbon Dioxide 25.3 32.3 H (21.0-32.0) meq/L BUN 46 H 26 H (7-18) mg/dL Creatinine 13.00 H* 8.90 H (0.60-1.30) mg/dL Calcium 8.5 8.2 L (8.5-10.1) mg/dL AST 11 L (15-37) U/L ALT 24 (12-78) U/L Alkaline Phosphatase 152 H (45-117) U/L Total Protein 7.6 (6.4-8.2) g/dL Albumin 3.7 (3.4-5.0) g/dL Intake and Output 08/18/18 08/19/18 08/19/18 22:59 06:59 14:59 Intake Total 240 / 240 Output Total 2500 / 2500 0 / 0 Balance -2500 / -2500 240 / 240 Intake: Oral 240 / 240 Output: Urine 0 / 0 Hemodialysis Amount 2500 / 2500 Other: Weight 127 lb 13.89 oz - Imaging and Cardiology Imaging: Impressions Chest CTA 08/18/18 00:00 CONCLUSION: 1. No pulmonary emboli. 2. Cardiomegaly with small pericardial effusion. 3. Bilateral pulmonary consolidations with bilateral pleural effusions and adenopathy suggesting an infectious etiology. Chest X-Ray 08/18/18 02:03 CONCLUSION: Cardiomegaly with diffuse consolidation likely related to diffuse processes such as pulmonary edema or diffuse infection. Chest X-Ray 08/18/18 15:17 CONCLUSION: There continues to be interstitial infiltrates bilaterally suggestive of pulmonary edema versus pneumonia. This is about the same or slightly improved compared to the prior exam. Assessment and Plan - Plan 23-year-old male with ESRD on HD, HTN, secondary hyperparathyroidism who presented for shortness of breath Shortness of breath/atypical chest pain: Symptoms seem consistent with volume overload/pulmonary edema; suspect secondary to increased sodium intake in the setting of ESRD. Dialysis/diuresis per nephrology. Minimal troponin elevation in the setting of ESRD downtrending with dialysis. EKG changes possibly due to LVH. Echocardiogram is been ordered, but unless any significant reduction in ejection fraction, likely no further cardiac intervention indicated at this time. Discussed Condition With: Patient, Dr. Quezada
[2018-08-19] MEDS ORDERED: Verapamil SR 240 MG Tablet PO SCH (09:00)
[2018-08-19] MEDS: amLODIPine 10 MG Tablet PO SCH (09:18)
[2018-08-19] MEDS: Verapamil SR 240 MG Tablet PO SCH ×2 (09:19→21:26)
[2018-08-19] MEDS: hydrALAZINE 50 MG Tablet PO SCH ×2 (09:19→21:27)
[2018-08-19] MEDS ORDERED: Vancomycin Consult Pharmacy OTHER PRN (10:31)
[2018-08-19 10:33] LABS: Chloride 96 meq/L (98-107); Potassium 5.3 meq/L (3.5-5.1); Sodium 136 meq/L (136-145)
[2018-08-19 10:39] LABS: Albumin 3.4 g/dL (3.4-5.0); Anion Gap 8 meq/L (5-15); Blood Urea Nitrogen 22 mg/dL (7-18); Calcium 8.8 mg/dL (8.5-10.1); Carbon Dioxide 32.2 meq/L (21.0-32.0); Glucose,Random 101 mg/dL (74-106)
[2018-08-19 10:41] LABS: Aspartate Aminotransferase 9 U/L (15-37)
[2018-08-19 10:42] LABS: Alanine Aminotransferase 21 U/L (12-78)
[2018-08-19 10:43] LABS: Glomerular Filtration Rate 8 mL/min (>89); Total Protein 7.5 g/dL (6.4-8.2)
[2018-08-19 10:44] LABS: Alkaline Phosphatase 127 U/L (45-117)
[2018-08-19] MEDS: Piperacil/Tazo 2.25 GM Premix 2.25 GM/50 ML PIGGYBACK IV.SIG SCH ×2 (12:00→21:26)
[2018-08-19] MEDS ORDERED: Vancomycin Inj 1,000 MG in Sodium Chlor 0.9% Inj 250 ML IV.SIG ONE (12:00)
--- NOTE | 2018-08-19 13:38 | ECG ---
Date Performed: 08/18/2018 Time Performed: 15:57:52 PTAGE: 23 years EKG: SINUS TACHYCARDIA LEFT ATRIAL ENLARGEMENT BORDERLINE RIGHT AXIS DEVIATION MODERATE T-WAVE A BNORMALITY, CONSIDER LATERAL ISCHEMIA ABNORMAL ECG Since the PREVIOUS TRACING , no significant change noted PREVIOUS TRACIN08/18/2018 02.29 DOCTOR: Amauri Landeros Interpretating Date/Time 08/19/2018 13:29:43
--- NOTE | 2018-08-19 14:56 | P.PNIM ---
Subjective Interval history: Patient says he is feeling better today. Denies any chest pain today. Reports shortness of breath much improved. Physical Exam Vital signs: Vital Signs 08/18/18 14:56 08/18/18 15:15 08/18/18 19:40 Temperature Pulse Rate 108 H Respiratory Rate 40 H 5 L Blood Pressure 128/83 Pulse Oximetry 95 96 08/18/18 20:00 08/18/18 21:10 08/18/18 23:57 Temperature 98.8 F 99.6 F Pulse Rate 96 H 100 H Respiratory Rate 22 31 H Blood Pressure 140/70 151/81 H Pulse Oximetry 100 98 95 08/19/18 04:00 08/19/18 09:10 08/19/18 09:15 Temperature 98.5 F Pulse Rate 95 H Respiratory Rate 33 H Blood Pressure 128/72 Pulse Oximetry 99 94 L Intake & Output 08/18/18 08/19/18 08/19/18 18:59 06:59 18:59 Intake Total 240 / 240 150 / 150 Output Total 3200 / 3200 2500 / 2500 Balance -3200 / -3200 -2260 / -2260 150 / 150 Weight 58 kg Intake: IV 150 / 150 Levaquin 750 mg Premix Inj 150 150 / 150 ML @ 100 mls/hr IV.SIG Q48H [facility] Rx#:[id number] Oral 240 / 240 Output: Urine 0 / 0 Hemodialysis Amount 3200 / 3200 2500 / 2500 Other: Date of Last Bowel Movement 08/17/18 Narrative: GENERAL: Patient lying in bed. Appears comfortable. Alert and oriented x3. SKIN: Warm and dry. HEAD: Normocephalic. EYES: No scleral icterus. No injection or drainage. NECK: Supple, trachea midline. No JVD. CARDIOVASCULAR: Regular rate and rhythm without murmurs, gallops, or rubs. RESPIRATORY: Breath sounds equal bilaterally. No accessory muscle use. GASTROINTESTINAL: Abdomen soft, non-tender, nondistended. MUSCULOSKELETAL: No cyanosis, or edema. BACK: Nontender without obvious deformity. No CVA tenderness. Results - Labs CBC & Chem 7: 08/18/18 02:05 08/19/18 09:25 Laboratory Results - last 24 hr 08/18/18 08/18/18 08/18/18 16:20 16:20 16:20 Puncture Site Patient Temperature O2 Saturation ABG pH ABG pCO2 ABG pO2 ABG HCO3 ABG O2 Content ABG Base Excess ABG Methemoglobin Cricket Test Hemoglobin Carboxyhemoglobin O2 Delivery Device Liter Flow Inspired O2 Critical Value Sodium 136 Potassium 5.8 H Chloride 97 L Carbon Dioxide 32.3 H Anion Gap 7 BUN 26 H Creatinine 8.90 H Estimated GFR 7 L POC Glucose Random Glucose 99 Calcium 8.2 L Total Bilirubin AST ALT Alkaline Phosphatase Troponin I 0.07 H B-Natriuretic Peptide 1641 H Total Protein Albumin 08/18/18 08/19/18 08/19/18 16:23 09:25 10:58 Puncture Site Right radial Patient Temperature 98.6 O2 Saturation 96 ABG pH 7.48 H ABG pCO2 41 ABG pO2 97 ABG HCO3 31 H ABG O2 Content 16.2 ABG Base Excess 6.9 H ABG Methemoglobin 0.7 Cricket Test Present Hemoglobin 11.9 L Carboxyhemoglobin 1.5 O2 Delivery Device Nonrebreather Liter Flow 12.00 Inspired O2 100 Critical Value No Sodium 136 Potassium 5.3 H Chloride 96 L Carbon Dioxide 32.2 H Anion Gap 8 BUN 22 H Creatinine 8.10 H Estimated GFR 8 L POC Glucose 97 Random Glucose 101 Calcium 8.8 Total Bilirubin 0.8 AST 9 L ALT 21 Alkaline Phosphatase 127 H Troponin I B-Natriuretic Peptide Total Protein 7.5 Albumin 3.4 - Imaging Impressions Chest CTA 08/18/18 00:00 CONCLUSION: 1. No pulmonary emboli. 2. Cardiomegaly with small pericardial effusion. 3. Bilateral pulmonary consolidations with bilateral pleural effusions and adenopathy suggesting an infectious etiology. Chest X-Ray 08/18/18 15:17 CONCLUSION: There continues to be interstitial infiltrates bilaterally suggestive of pulmonary edema versus pneumonia. This is about the same or slightly improved compared to the prior exam. Assessment and Plan - Plan //Acute CHF exacerbation //Atypical chest pain //End-stage renal disease on hemodialysis Wednesday and Wednesday. Nephrology consulted. -BNP elevated at 1300 on admission, 1600 after dialysis this morning. -Chest x-ray with bilateral infiltrates. -EKG with hypertrophy, ST depression -ABG with pH 7.48, bicarb 31, metabolic alkalosis -Check echocardiogram. Consult cardiology for cardiomyopathy. Nephrology is consulted for fluid overload. Discussed with nephrology who will dialyze the patient again. = Troponin elevated to 0.14 on admission, subsequently 0.07. Likely elevated due to ESRD, on likely elevated due to [place]. -Check CTA to rule out pulmonary embolism = 08/19. Symptoms much improved after dialysis yesterday. CT angiogram yesterday with bilateral what is described as consolidations. Suspect this is actually from fluid overload, however consult to pulmonology. Echocardiogram pending. Cardiology following. =Follow results of echocardiogram, pulmonology and cardiology recommendations Discharge Planning: Pending improvement. Hopefully can go home tomorrow if improved
--- NOTE | 2018-08-19 18:45 | MB ---
cc: Kamar Verde MD DATE: 08/19/2018 REQUESTING PHYSICIAN: Arnulfo Adames MD REASON FOR CONSULTATION: Evaluate for pneumonia. HISTORY OF PRESENT ILLNESS: Mr. Patel is a 23-year-old male with history of hypertension, end-stage renal disease, on dialysis for the last 2 years or so. He lives up [place]. He came over here to live with his half-brother. However, his half-brother lost his apartment, and the patient has no place and is planning to go back up [place]. The patient came to the hospital with worsening of his shortness of breath because he missed his dialysis. He was also found to have a potassium of 6.4. He has dialysis done twice now. He also has a CT of the chest done, which showed no pulmonary embolism. He has pleural effusion, bibasilar lung infiltrates. He has cough. No significant sputum production. He has mild shortness of breath when he lies down. Also, some discomfort when he takes a deep breath. LABORATORY DATA: He had a workup done. His WBC count is 7.3, hemoglobin 11.8, hematocrit 36, MCV 99, platelet count 288. Sodium 136, potassium 5.3, chloride 96, CO2 of 32, BUN 22, creatinine 8.10. PAST MEDICAL HISTORY: Significant for history of hypertension, end-stage renal disease. MEDICATIONS: 1. He is currently taking Norvasc 10 mg a day. 2. Heparin 5000 every 8 hours. 3. Hydralazine 100 mg twice a day. 4. Levaquin 750 mg every 48 hours. 5. Losartan 100 mg a day. 6. Zofran p.r.n. 7. Ferric citrate 210 mg. 8. Zosyn 2.25 g every 6 hours. 9. Verapamil 240 mg twice a day. ALLERGIES: HE IS ALLERGIC TO BETA PRATIBHA, CAFFEINE, CODEINE, MINOXIDIL, LATEX. SOCIAL HISTORY: He is single. He works for [employer], and he is on disability now. No history of smoking, alcohol, or drug abuse. FAMILY HISTORY: He has 3 siblings who are healthy. Both parents are healthy. REVIEW OF SYSTEMS: Normally, he is up around and active. No DVT, pulmonary embolus. No seizure, stroke. PHYSICAL EXAMINATION: GENERAL: Well-built, well-nourished male, not in any acute distress. VITAL SIGNS: His blood pressure 128/72, heart rate 94, respirations 22, temperature 98.5. HEENT: Pupils are equal and reactive to light. Oral mucosa and nasal mucosa normal. NECK: No JVD noted. CHEST: He has rales at both bases and decreased breath sounds at bases. CVS: S1, S2 normal. ABDOMEN: Soft, nondistended. Bowel sounds are present. EXTREMITIES: No edema. IMPRESSION: 1. Bibasilar Pneumonia. 2. Pleural effusion. 3. End-stage renal disease, on hemodialysis. 4. Hypertension. PLAN: We will continue antibiotics, check his cultures, supplement his oxygen. He is on hemodialysis. Monitor electrolytes. Further treatment will depend on course in hospital. Thank you, Dr. Arnulfo Adames, for this consult. MD MABLE Bartholomew/avila , 06:02 PM , 06:12 PM
--- NOTE | 2018-08-19 20:45 | P.PNNP ---
Subjective Interval history: Patient seen in early afternoon, breathing is much better, with nasal cannula. Physical Exam Vital signs: Vital Signs 08/18/18 21:10 08/18/18 23:57 08/19/18 04:00 Temperature 99.6 F 98.5 F Pulse Rate 100 H 95 H Respiratory Rate 31 H 33 H Blood Pressure 151/81 H 128/72 Pulse Oximetry 98 95 08/19/18 08:00 08/19/18 08:29 08/19/18 09:10 Temperature Pulse Rate 88 90 Respiratory Rate 17 Blood Pressure 126/79 Pulse Oximetry 97 99 08/19/18 09:15 08/19/18 12:00 08/19/18 16:39 Temperature 98.7 F Pulse Rate 104 H Respiratory Rate 23 Blood Pressure 132/76 116/61 Pulse Oximetry 94 L 95 96 08/19/18 19:54 08/19/18 20:00 Temperature 99.1 F Pulse Rate 97 H Respiratory Rate 18 Blood Pressure 120/62 Pulse Oximetry 99 98 Intake & Output 08/19/18 08/19/18 08/20/18 06:59 18:59 06:59 Intake Total 240 / 240 930 / 930 Output Total 2500 / 2500 0 / 0 Balance -2260 / -2260 930 / 930 Weight 58 kg Intake: IV 450 / 450 Levaquin 750 mg Premix Inj 150 150 / 150 ML @ 100 mls/hr IV.SIG Q48H [facility] Rx#:[id number] Zosyn 2.25 GM Premix 2.25 gm In 50 / 50 50 ml @ 100 mls/hr IV.SIG Q6H [facility] Rx#:[id number] Vancomycin Inj 1,000 MG In NS 250 / 250 Inj 250 ML @ 250 mls/hr IV.SIG ONCE ONE Rx#:[id number] Oral 240 / 240 480 / 480 Output: Urine 0 / 0 0 / 0 Hemodialysis Amount 2500 / 2500 Other: Date of Last Bowel Movement 08/17/18 Narrative: GENERAL: Patient lying in bed. Appears comfortable. Alert and oriented x3. SKIN: Warm and dry. HEAD: Normocephalic. EYES: No scleral icterus. No injection or drainage. NECK: Supple, trachea midline. No JVD. CARDIOVASCULAR: Regular rate and rhythm without murmurs, gallops, or rubs. RESPIRATORY: Breath sounds equal bilaterally. No accessory muscle use. GASTROINTESTINAL: Abdomen soft, non-tender, nondistended. MUSCULOSKELETAL: No cyanosis, or edema. BACK: Nontender without obvious deformity. No CVA tenderness. Assessment and Plan - Assessment (1) Pulmonary edema Code(s): J81.1 - Chronic pulmonary edema Status: Acute Qualifiers: Chronicity: acute Qualified Code(s): J81.0 - Acute pulmonary edema (2) Hyperkalemia Code(s): E87.5 - Hyperkalemia Status: Acute (3) Renal failure Code(s): N19 - Unspecified kidney failure Status: Acute Qualifiers: Renal failure chronicity: chronic Chronic kidney disease stage: on chronic dialysis Qualified Code(s): N18.6 - End stage renal disease; Z99.2 - Dependence on renal dialysis (4) Hemodialysis patient Code(s): Z99.2 - Dependence on renal dialysis Status: Acute - Plan Patient with end stage renal disease, admitted with SOB and Hyperkalemia. HD was done twice, last yesterday evening. Told to watch fluid and K intake. HD will be done in AM again. Possibly discharge tomorrow, if stable. Patient to continue HD in his city [place].
[2018-08-20] MEDS: Piperacil/Tazo 2.25 GM Premix 2.25 GM/50 ML PIGGYBACK IV.SIG SCH ×3 (01:05→14:27)
[2018-08-20 04:20] VITALS: RESP 20
[2018-08-20 06:57] LABS: Baso % (Auto) 0.7 % (0.0-2.0); Eos # (Auto) 0.6 th/mm3 (0.0-0.4); Hematocrit 35.7 % (39.0-51.0); Hemoglobin 11.6 gm/dL (13.0-17.0); Lymph # (Auto) 1.6 th/mm3 (1.0-4.8); Lymph % (Auto) 26.2 % (9.0-44.0); Mean Corpuscular HGB Conc 32.3 % (32.0-36.0); Mean Corpuscular Hemoglobin 32.1 pg (27.0-34.0); Mean Corpuscular Volume 99.3 fL (80.0-100.0); Mean Platelet Volume 8.1 fL (7.0-11.0); Mono # (Auto) 0.5 th/mm3 (0.0-0.9); Mono % (Auto) 8.5 % (0.0-8.0); Neut # (Auto) 3.5 th/mm3 (1.8-7.7); Neut % (Auto) 55.6 % (16.0-70.0); Platelet Count 280 th/mm3 (150-450); Red Cell Distribution Width 15.6 % (11.6-17.2); White Blood Count 6.2 th/mm3 (4.0-11.0)
[2018-08-20 07:06] LABS: Potassium 5.6 meq/L (3.5-5.1)
[2018-08-20 07:11] LABS: Albumin 3.2 g/dL (3.4-5.0)
[2018-08-20] MEDS: Heparin - SQ 10,000 UNITS/ML Vial SQ SCH ×3 (07:18→15:03)
[2018-08-20 07:27] LABS: Calcium 8.5 mg/dL (8.5-10.1); Carbon Dioxide 28.2 meq/L (21.0-32.0); Magnesium 2.5 mg/dL (1.5-2.5); Phosphorus 7.4 mg/dL (2.5-4.9)
[2018-08-20 09:01] VITALS: BP 116/74; TEMP 96.4; O2SAT 99
--- NOTE | 2018-08-20 09:15 | P.PNIM ---
Subjective Interval history: f/u; pulmonary edema in no acute distress. on two liters of oxygen via [place]. says that his sob is improving. no fever. denies chest pain. Physical Exam Vital signs: Last Vital Signs Temp 96.4 F L 08/20/18 08:00 Pulse 98 H 08/20/18 08:00 Resp 20 08/20/18 08:00 BP 116/74 08/20/18 08:00 Pulse Ox 99 08/20/18 08:00 Intake & Output 08/18/18 08/19/18 08/20/18 08/21/18 06:59 06:59 06:59 06:59 Intake Total 110 / 110 240 / 240 1270 / 1270 Output Total 0 / 0 5700 / 5700 0 / 0 Balance 110 / 110 -5460 / -5460 1270 / 1270 Weight 66.2 kg 58 kg 57.6 kg Constitutional no acute distress Routine Respiratory Exam Comments: bilateral air entry present. Routine Cardiovascular Exam Present RRR Routine Abdominal Exam Present soft Routine Extremities Exam Comments: no pedal edema. Routine Neurological Exam Present alert and oriented X3 Results Labs CBC & Chem 7: 08/20/18 06:00 08/20/18 06:00 Assessment and Plan (1) Pulmonary edema: Code(s): J81.1 - Chronic pulmonary edema Status: Acute (2) Hyperkalemia: Code(s): E87.5 - Hyperkalemia Status: Acute (3) Renal failure: Code(s): N19 - Unspecified kidney failure Status: Acute (4) Hemodialysis patient: Code(s): Z99.2 - Dependence on renal dialysis Status: Acute Plan A/P Acute CHF exacerbation Atypical chest pain End-stage renal disease on hemodialysis Wednesday and Wednesday. Nephrology consulted. -Chest x-ray with bilateral infiltrates. -Check echocardiogram. Consult cardiology for cardiomyopathy. Nephrology is consulted for fluid overload. -Troponin elevated to 0.14 on admission, subsequently 0.07. Likely elevated due to ESRD, on likely elevated due to [place]. -CTA chest with no PE. Discharge Planning: within the next 24-48 hrs if stable- pending echo and nephrology/pulmonary and cardiology clearance. Progress Note: Quality VTE Deep Vein Thrombosis/Pulmonary Embolism Present on Admission: No _ (1) Pulmonary edema Qualifiers: Chronicity: acute Qualified Code(s): J81.0 - Acute pulmonary edema (2) Renal failure Qualifiers: Acute renal failure type: Chronic kidney disease stage: on chronic dialysis Renal failure chronicity: chronic Qualified Code(s): N18.6 - End stage renal disease; Z99.2 - Dependence on renal dialysis
[2018-08-20] MEDS: hydrALAZINE 50 MG Tablet PO SCH (09:34)
[2018-08-20] MEDS: amLODIPine 10 MG Tablet PO SCH (09:35)
[2018-08-20] MEDS: Verapamil SR 240 MG Tablet PO SCH (09:35)
[2018-08-20] MEDS ORDERED: Regadenoson Inj 0.4 MG/5 ML Syringe IV.PUSH ONE (09:59)
[2018-08-20] MEDS ORDERED: Carvedilol 6.25 MG Tablet PO SCH (10:00)
--- NOTE | 2018-08-20 10:55 | P.PNCA ---
Subjective Interval history: Breathing is back to normal today. Telemetry with no significant arrhythmias noted. Patient reports he cannot take beta-blockers due to skin itching, urinary retention, and hair loss previously with metoprolol and labetalol. He denies any prior history of decreased heart function. Unsure if he would want to consider LifeVest, wants to talk to his family first. Medications and Allergies Active Medications: Active Medications Acetaminophen (Tylenol) 650 mg PO Q4H PRN PRN Reason: Temp > 100.4 Amlodipine Besylate (Norvasc) 10 mg PO DAILY [facility] Last Admin: 08/20/18 09:35 Dose: 10 mg Gentamicin Sulfate (Gentamicin Inj) 20 mg OTHER UNSCH PRN PRN Reason: WITH DIALYSIS Last Admin: 08/18/18 20:18 Dose: 20 mg Heparin Sodium (Porcine) (Heparin Inj) 5,000 units SQ Q8H [facility] Last Admin: 08/20/18 07:18 Dose: Not Given Heparin Sodium (Porcine) (Heparin Inj) 1,000 units OTHER UNSCH PRN PRN Reason: WITH DIALYSIS Last Admin: 08/18/18 20:18 Dose: 1,000 units Hydralazine HCl (Apresoline) 100 mg PO TID [facility] Levofloxacin/Dextrose (Levaquin 750 Mg Premix Inj) 150 mls @ 100 mls/hr IV.SIG Q48H [facility] Last Infusion: 08/19/18 14:21 Dose: Infused Piperacillin/Tazobactam/Dextrose (Zosyn 2.25 Gm Premix) 2.25 gm in 50 mls @ 100 mls/hr IV.SIG Q6H [facility] Last Admin: 08/20/18 07:14 Dose: 100 mls/hr Losartan Potassium (Cozaar) 100 mg PO DAILY [facility] Last Admin: 08/20/18 09:35 Dose: 100 mg Ondansetron HCl (Zofran Inj) 4 mg IV.PUSH Q6H PRN PRN Reason: NAUSEA OR VOMITING Auryxia (Ferric Citrate) 210 Mg 2 Tablets (420 Mg) Po Tid Prn Consumption Of Meals High In 0 each PO TID PRN PRN Reason: SEE LABEL COMMENTS Sodium Chloride (Ns Flush) 2 ml IV.FLUSH UNSCH PRN PRN Reason: FLUSH AFTER USING IV ACCESS Sodium Chloride (Ns Flush) 2 ml IV.FLUSH BID [facility] Last Admin: 08/20/18 09:35 Dose: 2 ml Sodium Chloride (Ns Flush) 2 ml IV.FLUSH PRN PRN PRN Reason: FLUSH AFTER USING IV ACCESS Allergies Allergy/AdvReac Type Severity Reaction Status Date / Time Beta-Blockers Allergy Dizziness Verified 08/18/18 01:55 (Beta-Adrenergic Bloc codeine Allergy Dizziness Verified 08/18/18 01:55 gluten Allergy Anaphylaxis Verified 08/18/18 01:54 latex Allergy Rash Verified 08/18/18 01:54 minoxidil Allergy Dizziness Verified 08/18/18 01:56 Home Medications Medication Instructions Recorded Confirmed Type Auryxia 210 mg PO TID PRN 08/18/18 08/18/18 History amlodipine 10 mg PO DAILY 08/18/18 08/18/18 History hydralazine 100 mg PO BID 08/18/18 08/18/18 History irbesartan 300 mg PO DAILY 08/18/18 08/18/18 History verapamil 240 mg PO QAM 08/18/18 08/18/18 History Physical Exam Vital signs: Vital Signs 08/19/18 12:00 08/19/18 16:39 08/19/18 19:54 Temperature 98.7 F Pulse Rate 104 H Respiratory Rate 23 Blood Pressure 132/76 116/61 Pulse Oximetry 95 96 99 08/19/18 20:00 08/20/18 00:00 08/20/18 04:00 Temperature 99.1 F 98.0 F 96.5 F L Pulse Rate 82 99 H 94 H Respiratory Rate 18 18 20 Blood Pressure 120/62 121/66 122/72 Pulse Oximetry 97 99 97 08/20/18 08:00 Temperature 96.4 F L Pulse Rate 98 H Respiratory Rate 20 Blood Pressure 116/74 Pulse Oximetry 99 Intake & Output 08/19/18 08/20/18 08/20/18 18:59 06:59 18:59 Intake Total 930 / 930 340 / 340 Output Total 0 / 0 Balance 930 / 930 340 / 340 Weight 126 lb 15.78 oz Intake: IV 450 / 450 100 / 100 Levaquin 750 mg Premix Inj 150 150 / 150 ML @ 100 mls/hr IV.SIG Q48H [facility] Rx#:[id number] Zosyn 2.25 GM Premix 2.25 gm In 50 / 50 100 / 100 50 ml @ 100 mls/hr IV.SIG Q6H [facility] Rx#:[id number] Vancomycin Inj 1,000 MG In NS 250 / 250 Inj 250 ML @ 250 mls/hr IV.SIG ONCE ONE Rx#:[id number] Oral 480 / 480 240 / 240 Output: Urine 0 / 0 Other: Date of Last Bowel Movement 08/17/18 08/17/18 Narrative: GENERAL: Well-developed well-nourished. In no acute distress. NECK: No carotid bruits. No JVD. CARDIOVASCULAR: Regular rate and rhythm. No murmur appreciated. RESPIRATORY: No accessory muscle use. Clear to auscultation. Breath sounds equal bilaterally. MUSCULOSKELETAL: No clubbing or cyanosis. No edema. NEUROLOGICAL: Awake and alert. Normal speech. Results 08/20/18 06:00 08/20/18 06:00 Cardiac Enzymes 08/18/18 08/18/18 08/19/18 Range/Units 16:20 16:20 09:25 AST 9 L (15-37) U/L Troponin I 0.07 H (0.02-0.05) ng/mL B-Natriuretic Peptide 1641 H (0-100) pg/mL Coagulation 08/18/18 Range/Units 16:20 B-Natriuretic Peptide 1641 H (0-100) pg/mL CBC 08/20/18 Range/Units 06:00 WBC 6.2 (4.0-11.0) th/mm3 RBC 3.60 L (4.50-5.90) mil/mm3 Hgb 11.6 L (13.0-17.0) gm/dL Hct 35.7 L (39.0-51.0) % Plt Count 280 (150-450) th/mm3 Neut # (Auto) 3.5 (1.8-7.7) th/mm3 Lymph # (Auto) 1.6 (1.0-4.8) th/mm3 [place] # (Auto) 0.5 (0.0-0.9) th/mm3 Eos # (Auto) 0.6 H (0.0-0.4) th/mm3 Baso # (Auto) 0.0 (0.0-0.2) th/mm3 Comprehensive Metabolic Panel 08/18/18 08/19/18 08/20/18 Range/Units 16:20 09:25 06:00 Sodium 136 136 132 L (136-145) meq/L Potassium 5.8 H 5.3 H 5.6 H (3.5-5.1) meq/L Chloride 97 L 96 L 95 L (98-107) meq/L Carbon Dioxide 32.3 H 32.2 H 28.2 (21.0-32.0) meq/L BUN 26 H 22 H 46 H (7-18) mg/dL Creatinine 8.90 H 8.10 H 10.00 H (0.60-1.30) mg/dL Calcium 8.2 L 8.8 8.5 (8.5-10.1) mg/dL AST 9 L (15-37) U/L ALT 21 (12-78) U/L Alkaline Phosphatase 127 H (45-117) U/L Total Protein 7.5 (6.4-8.2) g/dL Albumin 3.4 3.2 L (3.4-5.0) g/dL Intake and Output 08/19/18 08/20/18 08/20/18 22:59 06:59 14:59 Intake Total 530 / 530 290 / 290 Output Total 0 / 0 Balance 530 / 530 290 / 290 Intake: IV 50 / 50 50 / 50 Zosyn 2.25 GM Premix 2.25 gm In 50 / 50 50 / 50 50 ml @ 100 mls/hr IV.SIG Q6H [facility] Rx#:[id number] Oral 480 / 480 240 / 240 Output: Urine 0 / 0 Other: Date of Last Bowel Movement 08/17/18 Weight 126 lb 15.78 oz - Imaging and Cardiology Imaging: Impressions Chest CTA 08/18/18 00:00 CONCLUSION: 1. No pulmonary emboli. 2. Cardiomegaly with small pericardial effusion. 3. Bilateral pulmonary consolidations with bilateral pleural effusions and adenopathy suggesting an infectious etiology. Chest X-Ray 08/18/18 15:17 CONCLUSION: There continues to be interstitial infiltrates bilaterally suggestive of pulmonary edema versus pneumonia. This is about the same or slightly improved compared to the prior exam. Assessment and Plan - Plan 23-year-old male with ESRD on HD, HTN, secondary hyperparathyroidism who presented for shortness of breath CHF exacerbation: Clinically improving with extra dialysis session. Patient does not make much urine. Dialysis/diuresis per nephrology. Severe cardiomyopathy: Echocardiogram with EF 30%, new onset. Check Lexiscan, if significant ischemia will need LHC, if no significant ischemia in the medical management. Does not tolerate/refuses beta-wayne. Continue losartan 100 mg. No spironolactone with renal failure/hyperkalemia. Would recommend LifeVest at discharge and repeat echocardiogram with cargo handler as outpatient in 3 months. Hypertension: DC verapamil as contraindicated with decreased EF. Increase hydralazine 100mg to 3 times daily. Please call with questions. Discussed Condition With: Patient, RN, hospitalist, Dr. Rock
[2018-08-20 11:12] VITALS: PULSE 96
[2018-08-20] MEDS: Heparin 10,000 UNITS/10 ML Vial (for IV use) OTHER PRN (11:58)
[2018-08-20] MEDS ORDERED: hydrALAZINE 50 MG Tablet PO SCH (13:00)
--- NOTE | 2018-08-20 17:33 | P.DS ---
DS: Providers Date of admission: 08/18/18 03:46 Primary care physician: No Primary Care Physician Consults: 08/18/18 04:32 Consult to Nephrology Routine Consulting Provider: Priya Delgado Does the patient have a Staff Scientist who follows them?: No Preferred Nephrology Drawer Maker:: Julieta Delgado Reason for Consultation: emergent dialysis (ER MD already spoke to Dr Delgado) Notified:: Service Spoke with:: Francesca Date Notified:: 08/18/18 Time Notified:: 04:38 Ordering Provider: DESMOND 08/18/18 17:34 Consult to Cardiology Routine Consulting Provider: Lester Quezada Does the patient have a Cloth Calender who follows them?: No Preferred Sap Ppm Consultant:: Information Security Associate Physician Reason for Consultation: Effective cardiomyopathy. Inverted T waves in the lateral leads Notified:: Service Spoke with:: NEVAEH Date Notified:: 08/18/18 Time Notified:: 18:55 Ordering Provider: EMILY 08/19/18 10:33 Consult to Pulmonology Routine Consulting Provider: Kamar Verde Reason for Consultation: possible pneumonia on CTA Notified:: Office Spoke with:: Wolfgang Date Notified:: 08/19/18 Time Notified:: 10:45 Ordering Provider: EMILY Brief History from admission: 23-year-old male with a history of end-stage renal disease on hemodialysis who arrived from [place] 1 day ago, who presents with a 1 day history of dull constant pressure-like chest pain, shortness of breath beginning last night. He says he thinks it was due to him lying down flat. He says he is not been admitted to the hospital with similar issues in the past, fluid on his lungs, and this was found to be fluid overload. however, he denies any history of heart disease. Breath has improved after dialysis, however is continuing. Dull chest pain radiating to back is slightly better. Patient denies any illicit drug use. Denies any recent medication changes. DS: Diagnosis Discharge Diagnosis (1) Pulmonary edema: Status: Acute (2) Hyperkalemia: Status: Acute (3) Renal failure: Status: Acute (4) Hemodialysis patient: Status: Acute DS: Summary Acute CHF exacerbation Atypical chest pain End-stage renal disease on hemodialysis Wednesday and Wednesday. Nephrology consulted. -Chest x-ray with bilateral infiltrates. -Check echocardiogram. Consult cardiology for cardiomyopathy. Nephrology is consulted for fluid overload. -Troponin elevated to 0.14 on admission, subsequently 0.07. Likely elevated due to ESRD, on likely elevated due to GA. -CTA chest with no PE. patient decided to sign out against medical advice. Time Spent with Patient Total time spent providing and/or coordinating discharge services: < 35 min. Quality: VTE Deep Vein Thrombosis/Pulmonary Embolism Present on Admission: No Exam Narrative Exam Narrative: patient with improved sob and not in acute distress. bilateral air entry present on ling exam. S1/S2 heard- abdomen is soft with no pedal edema. Results Procedures completed during hospitalization: none Labs on day of discharge: Labs from last 24 hours 08/20/18 08/20/18 06:00 06:00 CBC w Diff Auto diff final WBC 6.2 RBC 3.60 L Hgb 11.6 L Hct 35.7 L MCV 99.3 MCH 32.1 MCHC 32.3 RDW 15.6 Plt Count 280 MPV 8.1 Neut % (Auto) 55.6 Lymph % (Auto) 26.2 Grimes % (Auto) 8.5 H Eos % (Auto) 9.0 H Baso % (Auto) 0.7 Neut # (Auto) 3.5 Lymph # (Auto) 1.6 Grimes # (Auto) 0.5 Eos # (Auto) 0.6 H Baso # (Auto) 0.0 WBC Differential . Differential Comment . Sodium 132 L Potassium 5.6 H Chloride 95 L Carbon Dioxide 28.2 Anion Gap 9 BUN 46 H Creatinine 10.00 H Estimated GFR 6 L Random Glucose 91 Calcium 8.5 Phosphorus 7.4 H Magnesium 2.5 Albumin 3.2 L Impressions ITS Impressions Chest CTA 08/18/18 00:00 CONCLUSION: 1. No pulmonary emboli. 2. Cardiomegaly with small pericardial effusion. 3. Bilateral pulmonary consolidations with bilateral pleural effusions and adenopathy suggesting an infectious etiology. Chest X-Ray 08/18/18 15:17 CONCLUSION: There continues to be interstitial infiltrates bilaterally suggestive of pulmonary edema versus pneumonia. This is about the same or slightly improved compared to the prior exam. Discharge Plan Discharge Disposition Patient Disposition: Against Medical Advice Discharge Condition Condition: Fair Discharge Order Discharge Orders: AMA Discharge (Routine); Ordered 08/20/18 Ordered By: Dawn Beckham Physicians Team Primary Care Provider: Primary Care Chari Jefferson Attending Provider: Dawn Beckham Other Providers: Priya Delgado ; Lester Quezada ; Kamar Verde Rxs /Orders / Referrals /Forms Prescriptions: No Action Auryxia 210 mg PO TID PRN (Reason: (Drug) Ingestion) RF: 0 amlodipine 10 mg Tablet 10 mg PO DAILY RF: 0 hydralazine 100 mg Tablet 100 mg PO BID RF: 0 verapamil 240 mg Tablet Extended Release 240 mg PO QAM RF: 0 irbesartan 300 mg Tablet 300 mg PO DAILY RF: 0 Ambulatory Orders / Order Sets / DME: Defibrillator Jacket (Routine) Location: Determined by Patient Ordered By: Dez Greenberg Referrals: Primary Care Chari Jefferson [Primary Care Provider] - See Instructions Discharge Instructions Patient Printed Instructions: Chest Pain (ED) Status ED Status: Left Department Discharge Information Discharge Date/Time: 08/20/18 15:41
== END 2018-08-20 15:41 | disposition left against medical advice (07) | DRG 291 ==
LOC: PHED 01:32 → PHEDA 03:46 → PHICU 05:03 → PH3 08-20 02:53
PROVIDERS: ADMIT Internal Medicine; ATTEND Internal Medicine
DX: N25.81 Secondary hyperparathyroidism of renal origin; D64.9 Anemia, unspecified; I13.2 Hypertensive heart and chronic kidney disease with heart failure and with stage 5 chronic kidney disease, or end stage renal disease; I42.9 Cardiomyopathy, unspecified; J18.9 Pneumonia, unspecified organism; N18.6 End stage renal disease; E87.5 Hyperkalemia; I50.9 Heart failure, unspecified; Z91.19 Patient's noncompliance with other medical treatment and regimen; E87.3 Alkalosis; Z99.2 Dependence on renal dialysis
CPT/HCPCS: 36600; 71010; 71045; 71275; 80048; 80053; 80069; 82805; 82948; 82962; 83520; 83735; 83880; 84484; 85025; 90765; 90774; 90775; 90784; 90935; 93005; 93308; 96365; 96374; 96375; 99285; C8952; J0610; J1580; J1644; J1815; J1956; J2270; J2543; J3370; J7030; J7050; Q9967